=== PATIENT | male | born 1960 | race Caucasian/White ===

== ENCOUNTER 2017-08-27 12:53 | Emergency (ER) | payer OTHER ==
[~2017-08-27] VITALS: Ht 182.8 cm; Wt 108.9 kg
[~2017-08-27 12:53] MED LIST: ALPRAZOLAM0.25 MG PO; AMOXICILLIN500 M2 PO; AMOXIL875 MG PO; ANTIVERT/2525 M1 PO; ASPIRIN81 M1 PO; AUGMENTIN 875 M1 TAB PO; CIPROFLOXACIN500 MG PO; CLARITIN10 MG PO; CRESTOR5 MG PO; DARVOCET N 1001 TAB PO; FISH OIL 10001000 MG PO; IMDUR SA30 MG PO; ISOSORBIDE MONO20 MG; LISINOPRIL AND1 TA2; LISINOPRIL AND1 TAB PO; LOMOTIL 0.025 M1 TA1 PO; LOPRESSOR25 MG PO; MEDROL DOSEPAK4 MG PO; OMEPRAZOLE D/R20 MG PO; OMEPRAZOLE20 MG; PEN-VEE K500 MG PO; PLAVIX75 MG PO; PROTONIX20 MG PO; TAMIFLU75 MG PO; TYLENOL W/CODEI1 TA2 PO; Tessalon Perle100 MG PO; VIBRAMYCIN100 MG PO; VITAMIN D5000 UNI1 PO; ZITHROMAX Z PA250 MG PO; ZYRTEC10 MG PO; [UNRECOGNIZED DRUG - OTHER]
[2017-08-27 12:55] VITALS: BP 112/71
[2017-08-27] MEDS ORDERED: ZYRTEC10 MG PO (13:52)
[2017-08-27] MEDS ORDERED: ZITHROMAX250 MG PO (13:52)
== END 2017-08-27 14:01 | disposition home or self-care (01) ==
LOC: ED 12:53
DX: J20.9 Acute bronchitis, unspecified (principal); Z79.899 Other long term (current) drug therapy; Z79.82 Long term (current) use of aspirin

== ENCOUNTER 2019-03-10 15:43 | Inpatient (IN) | payer MEDICARE ==
[~2019-03-10] VITALS: Ht 182.8 cm; Wt 100.2 kg
[~2019-03-10 15:43] MED LIST changes: +ZITHROMAX250 MG PO
[2019-03-10 15:46] VITALS: BP 137/88
[2019-03-10 16:08] LABS: BASO # 0.1 10*3/uL (0.0-0.1); BASO % 0.9 % (0.0-1.0); EOS # 0.2 10*3/uL (0.0-0.4); EOS % 4.2 % (1.0-4.0); HEMATOCRIT 45.4 % (42.0-52.0); HEMOGLOBIN 15.5 g/dl (14.0-18.0); LYMPH # 1.4 10*3/uL (1.3-4.4); LYMPH % 24.7 % (27.0-41.0); MEAN CORPUSCULAR HGB 32.8 pg (27.0-31.0); MEAN CORPUSCULAR HGB CONC 34.1 g/dl (33.0-37.0); MONO # 0.4 10*3/uL (0.1-1.0); MONO % 6.8 % (3.0-9.0); NEUT # 3.5 10*3/uL (2.3-7.9); NEUT % 63.2 % (47.0-73.0); PLATELET COUNT AUTOMATED 186 10*3/uL (130-400); RED BLOOD COUNT 4.73 10*6/uL (4.50-5.90); RED CELL DISTRI WIDTH 12.8 % (0-14.5); WHITE BLOOD COUNT 5.5 10*3/uL (4.8-10.8)
[2019-03-10 16:24] LABS: LIPASE 192 U/L (73-393)
[2019-03-10 16:25] LABS: ALBUMIN 3.6 gm/dl (3.1-4.5); ALKALINE PHOSPHATASE 92 U/L (45-117); BUN 14 mg/dl (7-24); CHLORIDE 104 mmol/L (98-107); CREATININE 1.04 mg/dL (0.70-1.30); SGOT/AST 45 IU/L (3-35); SGPT/ALT 88 U/L (12-78); SODIUM 136 mmol/L (136-145); TOTAL PROTEIN 6.8 gm/dL (6.4-8.2)
[2019-03-10 16:28] LABS: TROPONIN I < 0.015 ng/ml (<0.045)
[2019-03-10 16:59] VITALS: BP 144/93
--- NOTE | 2019-03-10 17:14 | NUR ---
PT IS RESTING IN BED WITH FAMILY AT BEDSIDE. NO SIGNS OF ACUTE DISTRESS NOTED. VS STABLE. BED IS IN LOW POSITION. SIDE RAILS UP X2. WILL CONTINUE TO MONITOR.
--- NOTE | 2019-03-10 17:33 | NUR ---
CONTACTED FLOOR TO TAKE PT TO THE FLOOR AND THEY ARE ASKING FOR 10 MINUTES.
[2019-03-10 17:51] VITALS: BP 116/81
--- NOTE | 2019-03-10 17:51 | NUR ---
A 58, admitted to , under the services of MELI Baxter MD with a diagnosis of CHEST PAIN R/O ND. Chief complaint is CHEST PAIN, ARM NUMBNESS, SOB. Patient arrived via ambulatory from ER. Monitor applied. Initial assessment completed. Vital signs taken and recorded. MELI BAXTER MD notified of admission to the unit. Orders received. See assessment for past medical history, medications and allergies. Patient and/or family oriented to unit. [facility] visitation policy reviewed. Clothing/patient valuable form completed. WILMER BAHENA
[2019-03-10] MEDS ORDERED: PROTONIX40 MG PO (18:20)
[2019-03-10] MEDS ORDERED: OMEPRAZOLE20 M2 PO (18:22)
--- NOTE | 2019-03-10 18:26 | NUR ---
AWARE OF CONSULT CURRENTLY AT HOSPITAL FOR ROUNDS. SAID HE WOULD NOTIFY OF STRESS TEST IN AM AND WOULD SEE PT WHILE HE IS HERE.
[2019-03-10 20:00] VITALS: BP 157/88
--- NOTE | 2019-03-10 20:37 | NUR ---
24 HOUR CHART CHECK COMPLETE.
[2019-03-11] VITALS: BP 135/76
--- NOTE | 2019-03-11 07:04 | NUR ---
INFORMED CONSENT SIGNED FOR LEXISCAN STRESS TEST WITH DR. ESCALERA. RESTING EKG 1ST DEGREE BLOCK, HR 62, BP 134/82. SPO2 96% AND LUNGS CLEAR BILATERALLY. COMPLETED ONE MINUTE OF LEXISCAN PROTOCOL RECEIVING LEXISCAN 0.4MG OVER 10 SECONDS. NO ARRHYTHMIAS OR ST CHANGES NOTED. PT C/O SOB. LAST RECOVERY HR 74, BP 134/82. WAITING NUCLEAR SCANNING IN STABLE CONDITION.
--- NOTE | 2019-03-11 07:54 | NUR ---
PATIENT IS OFF FLOOR FOR STRESS TEST AT PRESENT TIME.
[2019-03-11 08:00] VITALS: BP 142/84
--- NOTE | 2019-03-11 10:07 | NUR ---
PATIENT TO HAVE ULTRASOUND OF THE LIVER AT 3PM, THEN WILL BE DISCHARGED. PER DR. FRYE, PATIENT CAN HAVE A NUCLEAR SCAN OF THE LIVER AN OUTPATIENT AT ANOTHER TIME. PATIENT NOTIFIED OF THIS AND INSTRUCTED TO REMAIN NPO FOR THE TEST.
--- NOTE | 2019-03-11 10:30 | NUR ---
[employer] in to see patient. He is currently having an echo done at bedside. Family outside the room. Will follow up at a later time.
[2019-03-11 12:00] VITALS: BP 170/85
--- NOTE | 2019-03-11 15:28 | NUR ---
[employer] in to talk to patient. Patient states lives at home with his . There are 0 steps in the home. Physician: Dr. Bhargav New [facility]: [facility] Home health services: none Patient's level of ADLs: INDEPENDENT Patient has working utilities: yes DME: none Follow-up physician's appointment after d/c: he prefers to make his own follow up appt after discharge Does patient want to access PORTAL?: no Discharge plan discussed with patient and his family who is at the bedside. He lives at home with his . He is independent in his ADLs and ambulation. Discussed home health care services and he denies any home needs at this time. When medically stable he will be discharged to home. His will provide transportation on discharge. BRITTNEE WANG
--- NOTE | 2019-03-11 16:14 | NUR ---
PATIENT RETURNED FROM ULTRASOUND, [place]OCK AND MONITOR REMOVED FOR DISCHARGE. Discharge instructions reviewed with patient/family. Patient receptive and verbalizes understanding. Follow-up care arranged. Written instructions given to patient/family. ELOISE SMYTH
--- NOTE | 2019-03-11 16:16 | NUR ---
PATIENT DISCHARGED TO FRONT LOBBY, AMBULATORY TO FRONT LOBBY, FOR TRANSPORT HOME BY PRIVATE VEHICLE.
== END 2019-03-11 16:17 | disposition home or self-care (01) | DRG 303 ==
LOC: ED 15:43 → EDHOLD 16:45 → 4E 17:33
PROVIDERS: Emergency Medicine; ADMIT Internal Medicine
DX: I25.119 Atherosclerotic heart disease of native coronary artery with unspecified angina pectoris (principal); R07.89 Other chest pain; K21.9 Gastro-esophageal reflux disease without esophagitis; R74.0 Nonspecific elevation of levels of transaminase and lactic acid dehydrogenase [LDH]; I10 Essential (primary) hypertension; E78.2 Mixed hyperlipidemia; Z95.5 Presence of coronary angioplasty implant and graft

== ENCOUNTER → 2021-04-08 | Outpatient (CLI) | payer MEDICARE, MEDICAID ==
[~2021-04-08] MED LIST changes: +OMEPRAZOLE20 M2 PO; +PROTONIX40 MG PO
== END | disposition home or self-care (01) ==
LOC: COVID19 16:59
PROVIDERS: ATTEND Internal Medicine
DX: U07.1 COVID-19 (principal)

== ENCOUNTER → 2021-10-14 | Outpatient (CLI) | payer MEDICARE, MEDICAID ==
[2021-10-14 12:49] LABS: ALKALINE PHOSPHATASE 107 U/L (45-117); BUN 14 mg/dl (7-24); CHLORIDE 107 mmol/L (98-107); CHOLESTEROL 198 mg/dL (<200); CPK 148 U/L (39-308); LDL CHOLESTEROL 85 mg/dL (9-159); POTASSIUM 4.5 mmol/L (3.5-5.1); SGOT/AST 67 IU/L (3-35); SGPT/ALT 89 U/L (12-78); SODIUM 139 mmol/L (136-145); TOTAL PROTEIN 6.9 gm/dL (6.4-8.2); TRIGLYCERIDES 300 mg/dl (<150)
== END | disposition home or self-care (01) ==
LOC: LAB 12:18
PROVIDERS: ATTEND Internal Medicine
DX: Z01.84 Encounter for antibody response examination (principal); R70.0 Elevated erythrocyte sedimentation rate; R79.82 Elevated C-reactive protein (CRP); Z13.0 Encounter for screening for diseases of the blood and blood-forming organs and certain disorders involving the immune mechanism; Z13.1 Encounter for screening for diabetes mellitus; Z13.21 Encounter for screening for nutritional disorder; Z13.220 Encounter for screening for lipoid disorders; Z13.228 Encounter for screening for other metabolic disorders; Z13.29 Encounter for screening for other suspected endocrine disorder; Z13.6 Encounter for screening for cardiovascular disorders; Z13.89 Encounter for screening for other disorder; Z13.9 Encounter for screening, unspecified

== ENCOUNTER 2022-11-07 11:14 | Emergency (ER) | payer MEDICARE, MEDICAID ==
[~2022-11-07] VITALS: Ht 182.8 cm; Wt 110.7 kg
[2022-11-07 11:31] VITALS: BP 131/85
[2022-11-07] MEDS ORDERED: VIBRA-TAB100 MG PO (12:57)
== END 2022-11-07 13:10 | disposition home or self-care (01) ==
LOC: ED 11:14
DX: A69.20 Lyme disease, unspecified (principal); I11.0 Hypertensive heart disease with heart failure; I50.9 Heart failure, unspecified; I25.2 Old myocardial infarction; F32.A Depression, unspecified; I25.10 Atherosclerotic heart disease of native coronary artery without angina pectoris; K21.9 Gastro-esophageal reflux disease without esophagitis; Z98.890 Other specified postprocedural states

== ENCOUNTER → 2023-08-16 | Outpatient (CLI) | payer MEDICARE, MEDICAID ==
[~2023-08-16] MED LIST changes: +LIPITOR20 MG PO; +OMEPRAZOLE MAGN20 MG PO; -OMEPRAZOLE20 M2 PO; +VIBRA-TAB100 MG PO
[2023-08-16 11:54] LABS: BASO % 0.6 % (0.0-1.0); EOS # 0.4 10*3/uL (0.0-0.4); EOS % 5.9 % (1.0-4.0); HEMATOCRIT 49.2 % (42.0-52.0); LYMPH # 2.2 10*3/uL (1.3-4.4); LYMPH % 33.5 % (27.0-41.0); MEAN CORPUSCULAR HGB CONC 33.7 g/dl (33.0-37.0); MEAN PLATELET VOLUME 10.2 fl (9.6-12.3); MONO # 0.5 10*3/uL (0.1-1.0); MONO % 7.5 % (3.0-9.0); NEUT # 3.4 10*3/uL (2.3-7.9); NEUT % 52.2 % (47.0-73.0); PLATELET COUNT AUTOMATED 233 10*3/uL (130-400); RED BLOOD COUNT 5.18 10*6/uL (4.50-5.90); RED CELL DISTRI WIDTH 12.9 % (0-14.5); WHITE BLOOD COUNT 6.6 10*3/uL (4.8-10.8)
[2023-08-16 12:40] LABS: ALKALINE PHOSPHATASE 120 U/L (46-116); BUN 14 mg/dl (9-23); CHLORIDE 102 mmol/L (98-107); CHOLESTEROL 189 mg/dL (<200); CPK 77 U/L (34-171); FREE T4 1.09 ng/dl (0.89-1.76); LDL CHOLESTEROL 91 mg/dL (9-159); POTASSIUM 4.3 mmol/L (3.4-5.1); SGPT/ALT 68 U/L (5-49); TOTAL PROTEIN 6.9 gm/dL (6.0-8.0); TRIGLYCERIDES 273 mg/dl (<150)
[2023-08-16 12:41] LABS: VITAMIN D, 25-HYDROXY 41.8 ng/mL (30-100)
== END | disposition home or self-care (01) ==
LOC: LAB 11:35
PROVIDERS: ATTEND Internal Medicine
DX: Z13.21 Encounter for screening for nutritional disorder (principal); Z13.0 Encounter for screening for diseases of the blood and blood-forming organs and certain disorders involving the immune mechanism; Z13.1 Encounter for screening for diabetes mellitus; Z12.5 Encounter for screening for malignant neoplasm of prostate; Z13.220 Encounter for screening for lipoid disorders; Z13.228 Encounter for screening for other metabolic disorders; Z13.29 Encounter for screening for other suspected endocrine disorder; Z13.6 Encounter for screening for cardiovascular disorders; Z13.9 Encounter for screening, unspecified; I10 Essential (primary) hypertension; J45.21 Mild intermittent asthma with (acute) exacerbation; E78.2 Mixed hyperlipidemia

== ENCOUNTER 2024-02-09 13:59 | Emergency (ER) | payer MEDICARE, OTHER ==
[~2024-02-09] VITALS: Ht 187.9 cm; Wt 108.9 kg
[2024-02-09 14:24] VITALS: BP 152/92
[2024-02-09 14:48] LABS: BASO % 0.7 % (0.0-1.0); EOS # 0.4 10*3/uL (0.0-0.4); EOS % 6.8 % (1.0-4.0); HEMATOCRIT 45.2 % (42.0-52.0); MEAN CELL VOLUME 95.4 fl (80.0-94.0); MEAN CORPUSCULAR HGB 32.5 pg (27.0-31.0); MEAN CORPUSCULAR HGB CONC 34.1 g/dl (33.0-37.0); MEAN PLATELET VOLUME 10.1 fl (9.6-12.3); MONO # 0.5 10*3/uL (0.1-1.0); MONO % 8.1 % (3.0-9.0); NEUT # 3.5 10*3/uL (2.3-7.9); NEUT % 57.3 % (47.0-73.0); PLATELET COUNT AUTOMATED 182 10*3/uL (130-400); RED BLOOD COUNT 4.74 10*6/uL (4.50-5.90); RED CELL DISTRI WIDTH 12.8 % (0-14.5)
[2024-02-09 15:03] LABS: ACT PARTIAL THROMBO TIME 25.4 SECONDS (20.0-32.1)
[2024-02-09 15:15] LABS: BUN 17 mg/dl (9-23); CHLORIDE 104 mmol/L (98-107)
[2024-02-09] MEDS ORDERED: Meclizine Hydrochloride 25 MG TAB PO ONE (15:20)
[2024-02-09] MEDS ORDERED: Meclizine25 MG PO (16:55)
== END 2024-02-09 17:25 | disposition home or self-care (01) ==
LOC: ED 13:59
PROVIDERS: Physician Assistant Medical
DX: R07.89 Other chest pain (principal); R42 Dizziness and giddiness; R20.0 Anesthesia of skin; I50.9 Heart failure, unspecified; I11.0 Hypertensive heart disease with heart failure; I25.2 Old myocardial infarction; I25.10 Atherosclerotic heart disease of native coronary artery without angina pectoris; Z95.5 Presence of coronary angioplasty implant and graft; K21.9 Gastro-esophageal reflux disease without esophagitis; F32.A Depression, unspecified

== ENCOUNTER → 2024-07-02 | Outpatient (CLI) | payer MEDICARE, OTHER ==
[~2024-07-02] MED LIST changes: +Meclizine25 MG PO
[2024-07-02 10:12] LABS: BASO % 0.6 % (0.0-1.0); EOS # 0.5 10*3/uL (0.0-0.4); EOS % 9.5 % (1.0-4.0); HEMATOCRIT 44.7 % (42.0-52.0); MEAN CELL VOLUME 97.6 fl (80.0-94.0); MEAN CORPUSCULAR HGB 33.2 pg (27.0-31.0); MONO # 0.5 10*3/uL (0.1-1.0); MONO % 9.9 % (3.0-9.0); NEUT # 2.3 10*3/uL (2.3-7.9); NEUT % 46.1 % (47.0-73.0); PLATELET COUNT AUTOMATED 184 10*3/uL (130-400); RED BLOOD COUNT 4.58 10*6/uL (4.50-5.90); RED CELL DISTRI WIDTH 13.3 % (0-14.5)
[2024-07-02 10:48] LABS: VITAMIN D, 25-HYDROXY 54.6 ng/mL (30-100)
[2024-07-02 10:49] LABS: ALKALINE PHOSPHATASE 97 U/L (46-116); BUN 13 mg/dl (9-23); CHLORIDE 104 mmol/L (98-107); CHOLESTEROL 177 mg/dL (<200); CPK 99 U/L (34-171); FREE T4 1.11 ng/dl (0.89-1.76); LDL CHOLESTEROL 52 mg/dL (9-159); POTASSIUM 4.3 mmol/L (3.4-5.1); SGPT/ALT 49 U/L (5-49); TOTAL PROTEIN 6.4 gm/dL (6.0-8.0); TRIGLYCERIDES 392 mg/dl (<150)
== END | disposition home or self-care (01) ==
LOC: LAB 09:56
PROVIDERS: ATTEND Internal Medicine
DX: Z12.5 Encounter for screening for malignant neoplasm of prostate (principal); I10 Essential (primary) hypertension; E78.2 Mixed hyperlipidemia; R74.8 Abnormal levels of other serum enzymes; R97.20 Elevated prostate specific antigen [PSA]; E11.65 Type 2 diabetes mellitus with hyperglycemia; E55.9 Vitamin D deficiency, unspecified

== ENCOUNTER 2024-08-01 12:21 | Emergency (ER) | payer MEDICARE ==
[~2024-08-01] VITALS: Ht 182.8 cm; Wt 99.8 kg
[2024-08-01 12:25] VITALS: BP 157/87
[2024-08-01] MEDS ORDERED: PROPRANOLOL ER80 MG PO (12:33)
[2024-08-01] MEDS ORDERED: SODIUM CHLORIDE 0.9% 1,000 ML IV ONE (12:40)
[2024-08-01] MEDS ORDERED: Meclizine Hydrochloride 25 MG TAB PO ONE (12:40)
[2024-08-01] MEDS ORDERED: Ondansetron Hydrochloride 4 MG/2 ML VIAL IV ONE (12:40)
[2024-08-01 13:06] LABS: BASO # 0.1 10*3/uL (0.0-0.1); BASO % 1.1 % (0.0-1.0); EOS # 0.6 10*3/uL (0.0-0.4); EOS % 10.4 % (1.0-4.0); HEMATOCRIT 45.3 % (42.0-52.0); MEAN CELL VOLUME 95.8 fl (80.0-94.0); MEAN CORPUSCULAR HGB 33.2 pg (27.0-31.0); MEAN CORPUSCULAR HGB CONC 34.7 g/dl (33.0-37.0); MEAN PLATELET VOLUME 10.3 fl (9.6-12.3); MONO # 0.5 10*3/uL (0.1-1.0); MONO % 9.3 % (3.0-9.0); NEUT # 3.4 10*3/uL (2.3-7.9); NEUT % 63.1 % (47.0-73.0); PLATELET COUNT AUTOMATED 185 10*3/uL (130-400); RED BLOOD COUNT 4.73 10*6/uL (4.50-5.90); RED CELL DISTRI WIDTH 12.8 % (0-14.5); WHITE BLOOD COUNT 5.4 10*3/uL (4.8-10.8)
[2024-08-01 13:34] LABS: BUN 20 mg/dl (9-23); CHLORIDE 100 mmol/L (98-107); POTASSIUM 4.8 mmol/L (3.4-5.1)
== END 2024-08-01 14:06 | disposition home or self-care (01) ==
LOC: ED 12:21
PROVIDERS: Emergency Medicine
DX: R42 Dizziness and giddiness (principal); T44.7X5A Adverse effect of beta-adrenoreceptor antagonists, initial encounter; I10 Essential (primary) hypertension; E78.5 Hyperlipidemia, unspecified; F41.9 Anxiety disorder, unspecified; Z79.82 Long term (current) use of aspirin; Z79.899 Other long term (current) drug therapy; Y92.89 Other specified places as the place of occurrence of the external cause